=== PATIENT | female | born 1995 | race Caucasian/White ===

== ENCOUNTER 2019-11-03 12:15 | Emergency (ER) | payer OTHER ==
[~2019-11-03] VITALS: Ht 170.2 cm; Wt 110.1 kg
[2019-11-03] MEDS ORDERED: EFFE37.5 PO (12:21)
[2019-11-03 12:59] LABS: BASO # 0.1 10^3/uL (0.0-0.2); BASO % 0.4 % (0.0-1.0); EOS # 0.1 10^3/uL (0.0-0.5); EOS % 0.8 % (0.0-3.0); HEMATOCRIT 40.3 % (36.0-47.0); HEMOGLOBIN 12.4 g/dl (12.0-15.5); LYMPH # 2.5 10^3/uL (1.5-5.0); LYMPH % 21.6 % (24.0-44.0); MEAN CORPUSCULAR HEMOGLOBIN 24.8 pg (27.0-33.0); MEAN CORPUSCULAR HGB CONC 30.8 g/dl (32.0-36.5); MEAN CORPUSCULAR VOLUME 80.6 fl (80.0-96.0); MONO # 0.8 10^3/uL (0.0-0.8); MONO % 6.9 % (0.0-5.0); NEUTROPHILS % 70.1 % (36.0-66.0); PLATELET COUNT, AUTOMATED 311 10^3/uL (150-450); WHITE BLOOD COUNT 11.4 10^3/uL (4.0-10.0)
[2019-11-03 13:26] LABS: BLOOD UREA NITROGEN 12 MG/DL (7-18); CALCIUM LEVEL 8.8 MG/DL (8.5-10.1); CARBON DIOXIDE LEVEL 29 MEQ/L (21-32); CHLORIDE LEVEL 108 MEQ/L (98-107); CREATININE FOR GFR 0.74 MG/DL (0.55-1.30); GLOMERULAR FILTRATION RATE > 60.0 (>60); GLUCOSE, FASTING 73 MG/DL (70-100); POTASSIUM SERUM 4.2 MEQ/L (3.5-5.1); SODIUM LEVEL 140 MEQ/L (136-145)
[2019-11-03 13:28] LABS: HCG, SERUM QUALITATIVE NEGATIVE (NEGATIVE)
[2019-11-03] MEDS ORDERED: CIPR-249 PO (13:33)
[2019-11-03] MEDS ORDERED: PYRI1TAB5 PO (13:33)
[2019-11-03 13:40] VITALS: BP 108/63
--- NOTE | 2019-11-03 13:59 | REP ---
RENAL ULTRASOUND: Real-time sonographic evaluation of the kidneys performed. Kidneys are normal in size and echotexture, right kidney measuring 10.2 x 4.4 x 4.5 cm and left kidney 10.4 x 5.4 x 6.5 cm. There is no renal mass or hydronephrosis. Bladder is mildly distended. Ureteral jets are seen in the urinary bladder bilaterally with Doppler color evaluation. IMPRESSION: Negative renal ultrasound. Electronically Signed by Lorezno Newman MD 11/03/2019 02:02 P
== END 2019-11-03 13:43 | disposition home or self-care (01) ==
LOC: M ED 12:15
DX: N39.0 Urinary tract infection, site not specified (principal); F33.9 Major depressive disorder, recurrent, unspecified; Z79.899 Other long term (current) drug therapy; Z79.2 Long term (current) use of antibiotics

== ENCOUNTER 2020-06-09 14:01 | Emergency (ER) | payer OTHER ==
[~2020-06-09] VITALS: Ht 170.2 cm; Wt 114.9 kg
[~2020-06-09 14:01] MED LIST: CIPR-249 PO; EFFE37.5 PO; PYRI1TAB5 PO
[2020-06-09] MEDS ORDERED: ONDANSETRON 4MG/2ML VIAL IV ONE (15:15)
[2020-06-09] MEDS ORDERED: NS 1,000 ML IV ONE (15:15)
--- NOTE | 2020-06-09 16:07 | REP ---
INDICATION: VAGINAL BLEEDING. COMPARISON: None. TECHNIQUE: Transabdominal scanning. FINDINGS: Scanning through the urine filled bladder and gravid uterus demonstrates a single living intrauterine gestation in a free-floating lie. The embryonic pole measures 19 mm in crown-rump length. This corresponds with a gestational age estimate of 8 weeks 3 days. heart rate is recorded at 170 beats per minute. No extra uterine abnormality is observed. IMPRESSION: Viable single intrauterine gestation at 8 weeks 3 days by crown-rump length. CHELSIE by sonography 16 January 2021. No complication is identified. <Electronically signed by Efrain Bradford > 06/09/20 0749
[2020-06-09 17:33] LABS: BASO % 0.1 % (0.0-1.0); HEMATOCRIT 40.8 % (36.0-47.0); HEMOGLOBIN 12.6 g/dl (12.0-15.5); LYMPH # 2.3 10^3/uL (1.5-5.0); LYMPH % 21.4 % (24.0-44.0); MEAN CORPUSCULAR HGB CONC 30.9 g/dl (32.0-36.5); MEAN CORPUSCULAR VOLUME 80.8 fl (80.0-96.0); MONO # 0.6 10^3/uL (0.0-0.8); MONO % 5.4 % (0.0-5.0); NEUTROPHILS % 72.8 % (36.0-66.0); PLATELET COUNT, AUTOMATED 294 10^3/uL (150-450); RED BLOOD COUNT 5.05 10^6/uL (4.00-5.40)
[2020-06-09 18:14] LABS: ALBUMIN 3.7 GM/DL (3.2-5.2); ALT/SGPT 29 U/L (12-78); BILIRUBIN,DIRECT < 0.1 MG/DL (0.0-0.2); BILIRUBIN,TOTAL 0.4 MG/DL (0.2-1.0); HCG, SERUM QUANTITATIVE 77515 MIU/ML; LIPASE 90 U/L (73-393); TOTAL PROTEIN 8.2 GM/DL (6.4-8.2)
[2020-06-09 18:49] LABS: BILIRUBIN, URINE MANUAL NEGATIVE (NEGATIVE); GLUCOSE, URINE (UA) MANUAL NEGATIVE (NEGATIVE); KETONE, URINE MANUAL 2+ mg/dL (NEGATIVE); UROBILINOGEN, URINE MANUAL NORMAL (NORMAL)
[2020-06-09 19:02] LABS: BACTERIA, URINE SMALL AMOUNT; MUCUS, URINE MOD AMOUNT (NEGATIVE); RBC, URINE NONE SEEN /hpf (0-3); SQUAMOUS EPITHELIAL CELL URINE SMALL AMOUNT /hpf (SMALL AMT)
[2020-06-09 19:03] LABS: HYALINE CAST, URINE NONE SEEN /lpf (0-1)
[2020-06-09] MEDS ORDERED: MACR100C43 PO ×2 (19:16→19:49)
[2020-06-09] MEDS ORDERED: REGL10TA6 PO ×2 (19:19→19:49)
[2020-06-09 19:22] VITALS: BP 126/75
[2020-06-09] MEDS ORDERED: NITROFURANTOIN (MACROBID) 100 MG CAP PO ONE (19:30)
== END 2020-06-09 19:50 | disposition home or self-care (01) ==
LOC: M ED 14:01
DX: O21.8 Other vomiting complicating pregnancy (principal); Z3A.09 9 weeks gestation of pregnancy; O23.41 Unspecified infection of urinary tract in pregnancy, first trimester; O99.891 Other specified diseases and conditions complicating pregnancy; N93.0 Postcoital and contact bleeding
CPT/HCPCS: 76801; 80047; 80076; 81000; 81015; 83690; 84702; 85025; 86901; 87210; 93976; 96361; 96374; 99284; J2405

== ENCOUNTER → 2020-06-21 | Outpatient (REF) | payer OTHER ==
[~2020-06-21] MED LIST changes: +MACR100C43 PO; +REGL10TA6 PO
[2020-06-21 13:50] LABS: HEMATOCRIT 38.6 % (36.0-47.0); HEMOGLOBIN 11.8 g/dl (12.0-15.5); MEAN CORPUSCULAR HEMOGLOBIN 25.1 pg (27.0-33.0); MEAN CORPUSCULAR HGB CONC 30.6 g/dl (32.0-36.5); MEAN CORPUSCULAR VOLUME 82.1 fl (80.0-96.0); PLATELET COUNT, AUTOMATED 246 10^3/uL (150-450); WHITE BLOOD COUNT 7.6 10^3/uL (4.0-10.0)
[2020-06-21 14:21] LABS: GLUCOSE CHALLENGE TEST 1 HOUR 123 MG/DL (LESS THAN 140)
[2020-06-21 14:26] LABS: HEMOGLOBIN A1c 5.3 %
[2020-06-21 14:30] LABS: TOTAL 25(OH) VITAMIN D 14.8 NG/ML (30.0-100.0)
[2020-06-21 15:11] LABS: HIV 1&2 SCREEN CENTAUR NEGATIVE (NEGATIVE)
[2020-06-21 15:35] LABS: CHLAMYDIA DNA AMPLIFICATION NEGATIVE (NEGATIVE); GC DNA AMPLIFICATION NEGATIVE (NEGATIVE)
== END ==
LOC: M PLALAB 11:08
PROVIDERS: ATTEND Advanced Practice Midwife
DX: O99.341 Other mental disorders complicating pregnancy, first trimester (principal); Z3A.11 11 weeks gestation of pregnancy; F99 Mental disorder, not otherwise specified

== ENCOUNTER → 2020-07-19 | Outpatient (REF) | payer OTHER ==
[2020-07-19 13:19] LABS: FREE T4 0.85 NG/DL (0.76-1.46); THYROID STIMULATING HORMONE 2.46 uIU/ML (0.358-3.740)
== END ==
LOC: M PLALAB 10:02
PROVIDERS: ATTEND Advanced Practice Midwife
DX: O99.340 Other mental disorders complicating pregnancy, unspecified trimester (principal)
CPT/HCPCS: 36415; 84439; 84443; 87086; G0463

== ENCOUNTER → 2020-08-16 | Outpatient (CLI) | payer OTHER ==
--- NOTE | 2020-08-16 11:22 | REP ---
INDICATION: ANATOMY COMPARISON: None. TECHNIQUE: Transabdominal obstetrical ultrasound with color Doppler evaluation. FINDINGS: Examination demonstrates a single live intrauterine in transverse (head to maternal right) presentation. motion is identified by technologist. Placenta is noted posterior and grade 1 without evidence for placenta previa or abruption. Amniotic fluid volume is normal. Cervix measures 3.5 cm in length and appears closed.. Gestational age by LMP nineteen weeks 1 day with CHELSIE 01/09/2021. Gestational age by current measurements 19 weeks 1 day with CHELSIE 01/09/2021. FHR equals 149 beats per minute. BPD: 4.4 cm 19 weeks 2 days HC: 15.7 cm 18 weeks 4 days AC: 14.2 cm 19 weeks 4 days FL: 2.7 cm 18 weeks 2 days HL: 3.0 cm 19 weeks 6 days HC/AC: 1.11 Estimated weight 266 grams (37thpercentile). Anatomical assessment demonstrates normal structures including cranium, choroid plexus, cavum, cerebellum/posterior fossa, facial features, lungs, diaphragm, stomach, cord insertion/three-vessel cord, kidneys/bladder, spine, and extremities. IMPRESSION: Single live intrauterine in transverse lie demonstrating appropriate interval growth. Limited evaluation of the heart/ventricular outflow tracts may warrant re-evaluation and follow-up. Remainder of the anatomical assessment is complete and normal <Electronically signed by Lan Crowell > 08/16/20 111
== END ==
LOC: M WHC 10:00
PROVIDERS: ATTEND Advanced Practice Midwife
DX: Z34.82 Encounter for supervision of other normal pregnancy, second trimester (principal); Z3A.15 15 weeks gestation of pregnancy
CPT/HCPCS: 76811; G0463

== ENCOUNTER → 2020-09-19 | Outpatient (CLI) | payer OTHER ==
--- NOTE | 2020-09-20 03:07 | REP ---
INDICATION: ANATOMY COMPARISON: 08/16/2020 TECHNIQUE: Transabdominal obstetrical ultrasound with color Doppler evaluation. FINDINGS: Examination demonstrates a single live intrauterine in cephalic presentation. motion is identified by technologist. Placenta is noted posterior and grade 1 without evidence for placenta previa or abruption. Amniotic fluid volume is normal. Cervix measures 3.0 cm in length and appears closed.. Gestational age by LMP 24 weeks 0 days with CHELSIE 01/09/2021. Gestational age by current measurements 24 weeks 3 days with CHELSIE 01/06/2021. FHR equals 152 beats per minute. Estimated weight 714 grams (70thpercentile). Anatomical assessment demonstrates normal structures including four-chamber heart/ventricular outflow tracts. IMPRESSION: Single live intrauterine in cephalic presentation demonstrating appropriate estimated weight and growth. In conjunction with prior examination anatomical assessment is complete and normal. <Electronically signed by Lan Crowell > 09/20/20 4500
== END ==
LOC: M WHC 14:58
PROVIDERS: ATTEND Advanced Practice Midwife
DX: R39.9 Unspecified symptoms and signs involving the genitourinary system (principal); Z3A.39 39 weeks gestation of pregnancy

== ENCOUNTER → 2020-10-02 | Outpatient (REF) | payer OTHER | LOC: M WUC 12:32 | PROVIDERS: ATTEND Physician Assistant | DX: R30.0 Dysuria (principal) ==

== ENCOUNTER → 2020-10-11 | Outpatient (REF) | payer OTHER ==
[2020-10-11 18:18] LABS: HEMATOCRIT 33.1 % (36.0-47.0); HEMOGLOBIN 10.5 g/dl (12.0-15.5); MEAN CORPUSCULAR HEMOGLOBIN 26.9 pg (27.0-33.0); MEAN CORPUSCULAR HGB CONC 31.7 g/dl (32.0-36.5); MEAN CORPUSCULAR VOLUME 84.7 fl (80.0-96.0); PLATELET COUNT, AUTOMATED 288 10^3/uL (150-450); RED BLOOD COUNT 3.91 10^6/uL (4.00-5.40); WHITE BLOOD COUNT 10.4 10^3/uL (4.0-10.0)
[2020-10-11 18:57] LABS: FREE T4 0.75 NG/DL (0.76-1.46); THYROID STIMULATING HORMONE 0.888 uIU/ML (0.358-3.740)
== END ==
LOC: M PLALAB 14:44
PROVIDERS: ATTEND Advanced Practice Midwife
DX: Z36.89 Encounter for other specified antenatal screening (principal); Z3A.23 23 weeks gestation of pregnancy
CPT/HCPCS: 36415; 82950; 84439; 84443; 85027; 86850; 86900; 86901; 87086; G0463

== ENCOUNTER → 2020-10-24 | Outpatient (CLI) | payer OTHER ==
--- NOTE | 2020-10-24 17:36 | REP ---
INDICATION: SIZE-DATE DISCREPANCY,GROWTH. COMPARISON: 09/19/2020. TECHNIQUE: Real-time sonographic evaluation of the gravid uterus performed. FINDINGS: Estimated gestational age is29 weeks 0 days, EDC 01/09/2021. Today's measurements indicate appropriate growth. Presentation: Cephalic Placenta posterior, grade 2, without evidence of placenta previa. heart rate is recorded at 146 beats per minute. Amniotic fluid is subjectively normal. SERGE 20.3, normal 9.2-23.1 Closed cervical length is measured at 3.1 cm. Biometry chart: BPD: 76 mm, 30 weeks 3 days, 70th percentile. HC: 267 mm, 29 weeks 1 days, 52nd percentile AC: 269 mm, 31 weeks 0 days, 80th percentile Femur length: 55 mm, 28 weeks 6 days, 47th percentile HC to AC ratio: 0.99, normal range 0.98-1.17. Estimated weight: 08/08/2008g, 77th percentile. Three-vessel cord is noted. Kidneys, bladder and spine are visualized and are grossly unremarkable. IMPRESSION: Viable single intrauterine gestation as above. <Electronically signed by Lorenzo Newman > 10/24/20 [id number]
== END ==
LOC: M WHC 14:17
PROVIDERS: ATTEND Obstetrics & Gynecology
DX: O26.842 Uterine size-date discrepancy, second trimester (principal); Z3A.29 29 weeks gestation of pregnancy

== ENCOUNTER → 2020-10-27 | Outpatient (CLI) | payer OTHER | LOC: M LAB 08:32 | PROVIDERS: ATTEND Advanced Practice Midwife | DX: Z34.93 Encounter for supervision of normal pregnancy, unspecified, third trimester (principal); Z3A.00 Weeks of gestation of pregnancy not specified ==

== ENCOUNTER → 2020-11-30 | Outpatient (CLI) | payer OTHER ==
[~2020-11-30] MED LIST changes: +ACET-683 PO; +ACET325C5 PO; +CEPH500T PO; +IBUP80TA PO
--- NOTE | 2020-11-30 17:58 | REP ---
INDICATION: 34 WEEK NON REACTIVE NST. COMPARISON: 11/30/2020. 12:23 p.m.. TECHNIQUE: Real-time sonographic evaluation of the gravid uterus performed. FINDINGS: Estimated gestational age is35 weeks 3 days, EDC 01/01/2021. Presentation: Breech Placenta posterior, grade 1, without evidence of placenta previa. heart rate is recorded at 145 beats per minute. Amniotic fluid is subjectively upper limits of normal. SERGE 25.3, normal range 7.8-24.9. Biophysical profile score 8/8. SD ratio umbilical artery 2.45, normal 1.66-3.55. RI 0.59, normal 0.46-0.72. Closed cervical length is measured at 3.2 cm. IMPRESSION: Viable single intrauterine gestation as above. <Electronically signed by Lorenzo Newman > 11/30/20 [id number]
== END ==
LOC: M RAD 17:05
PROVIDERS: ATTEND Obstetrics & Gynecology
DX: O24.419 Gestational diabetes mellitus in pregnancy, unspecified control (principal); Z3A.35 35 weeks gestation of pregnancy
CPT/HCPCS: 76816; 76819; 76820; G0463

== ENCOUNTER → 2020-12-11 | Outpatient (REF) | payer OTHER ==
[~2020-12-11] MED LIST changes: -ACET-683 PO; -ACET325C5 PO; -CEPH500T PO; -IBUP80TA PO
== END ==
LOC: M SFHCWAGY 13:06
PROVIDERS: ATTEND Specialist
DX: Z36.89 Encounter for other specified antenatal screening (principal)

== ENCOUNTER 2020-12-13 22:51 | Outpatient (CLI) | payer OTHER ==
[~2020-12-13] VITALS: Ht 170.2 cm; Wt 118.8 kg
[2020-12-13 23:09] VITALS: BP 133/64
[2020-12-14] MEDS ORDERED: diphenhydrAMINE 50MG CAP PO ONE (00:25)
[2020-12-14] MEDS ORDERED: diphenhydrAMINE 25MG CAP PO ONE (00:35)
[2020-12-16] MEDS ORDERED: CEPH500T PO (23:53)
== END 2020-12-14 00:45 | disposition home or self-care (01) ==
LOC: M LDO 22:51
PROVIDERS: ATTEND Advanced Practice Midwife
DX: O47.03 False labor before 37 completed weeks of gestation, third trimester (principal); Z3A.36 36 weeks gestation of pregnancy; O24.419 Gestational diabetes mellitus in pregnancy, unspecified control; O99.343 Other mental disorders complicating pregnancy, third trimester; F41.9 Anxiety disorder, unspecified; F32.9 Major depressive disorder, single episode, unspecified
CPT/HCPCS: 59025; 87081; G0378; G0463

== ENCOUNTER → 2020-12-16 | Outpatient (CLI) | payer OTHER ==
[~2020-12-16] VITALS: Ht 170.2 cm; Wt 119.1 kg
[~2020-12-16] MED LIST changes: +CEPH500T PO; +CEPHALEXIN 500 MG CAP PO ONE
[2020-12-16 21:49] VITALS: BP 103/56
[2020-12-16 23:23] VITALS: BP 109/56
--- NOTE | 2020-12-17 00:18 | IPNPDOC ---
Text Note Date of Service The patient was seen on 12/17/20. NOTE Triage Note Lily is a 25yo with SIUP at 36w5d by LMP presenting tonight for two reasons. She feels she has a UTI, states she did home tests that were positive. She feels like she is "peeing razor blades" and has to use the toilet every 10 minutes. She states she has overall not felt many movements all day, does not think she can get 10 movements over 2hr. No regular/painful ctx. No LOF. No vaginal bleeding. Vitals wnl, afebrile Gen: WDWN, resting comfortably in bed Abdomen: soft, gravid, NTTP TAUS: SIUP with cephalic presentation, posterior placenta, +FCA, +FM, MVP 8cm NST: reactive, +accels, -decels, mod [place]: rare ctx Urinalysis: spec grav 1.024, 1+ protein, negative nitrite, 2+ leuk esterase, negative blood, 33 WBC, negative bacteria, 4 squam Assessment: Lily is a 25yo with SIUP at 36w5d by LMP with reassuring assessment and likely UTI by UA result showing 2+ LE, 33 WBC. She had e- coli UTI in Jun 2020 and had sx in October with negative urine culture. Vitals wnl, benign exam. Plan: -discharge to home -Rx keflex 500mg QID x7d, first dose here and then pt to [facility] Rx first thing in the morning -pt to keep next routine OB appt on Friday -provided reassurance -discussed return precautions MD PHILIP Randall Fishbone, I+O Malvin PALACIOS I+O Vital Signs Date Time Temp Pulse Resp B/P (MAP) Pulse Ox O2 Delivery O2 Flow Rate FiO2 12/16/20 21:49 98.0 91 16 103/56 (72) Charises Jimenez MD December 17, 2020 00:18
== END ==
LOC: M LDO 21:36
PROVIDERS: ATTEND Obstetrics & Gynecology
DX: O23.43 Unspecified infection of urinary tract in pregnancy, third trimester (principal); Z3A.36 36 weeks gestation of pregnancy; O36.8130 Decreased fetal movements, third trimester, not applicable or unspecified
CPT/HCPCS: 59025; 76815; 81001; 87086; G0378; G0463

== ENCOUNTER → 2020-12-21 | Outpatient (CLI) | payer OTHER ==
[~2020-12-21] MED LIST changes: +ACET-683 PO; +ACET325C5 PO; -CEPHALEXIN 500 MG CAP PO ONE; +IBUP80TA PO
--- NOTE | 2020-12-22 06:59 | REP ---
INDICATION: GROWTH/CHELSIE 01/09/21 COMPARISON: 11/30/2020 TECHNIQUE: Transabdominal obstetrical ultrasound with color Doppler evaluation. FINDINGS: Examination demonstrates a single live intrauterine in cephalic presentation. motion is identified by technologist. Placenta is noted posterior and grade 2 without evidence for placenta previa or abruption. Amniotic fluid volume is normal. Cervix appears closed.. Gestational age by 1st U/S 37 weeks 2 days with CHELSIE 01/09/2021. Gestational age by known CHELSIE at 38 weeks 3 days with CHELSIE 01/01/2021. Gestational age by current measurements 39 weeks 2 days with CHELSIE 12/26/2020. FHR equals 165 beats per minute. SERGE: 22.7 cm (7.3-23.3) Biophysical profile score: 8/8 Umbilical artery SD ratio: 2.30 (1.53-3.33) Estimated weight 3895 grams (greater than 97thpercentile based on age by known CHELSIE). IMPRESSION: Single live intrauterine in cephalic presentation demonstrating greater than expected interval growth. Correlation is required. <Electronically signed by Lan Crowell > 12/22/20 0665
== END ==
LOC: M WHC 14:23
PROVIDERS: ATTEND Advanced Practice Midwife
DX: O24.419 Gestational diabetes mellitus in pregnancy, unspecified control (principal); Z3A.38 38 weeks gestation of pregnancy

== ENCOUNTER 2020-12-22 05:48 | Inpatient (IN) | payer OTHER ==
[2020-12-22] VITALS (37 sets, daily range): BP systolic 85–151; BP diastolic 42–83
[~2020-12-22] VITALS: Ht 170.2 cm; Wt 118.8 kg
[~2020-12-22 05:48] MED LIST changes: -ACET-683 PO; -ACET325C5 PO; -IBUP80TA PO
[2020-12-22] MEDS ORDERED: LACTATED RINGER'S 1000 ML IV STA (07:27)
[2020-12-22] MEDS ORDERED: OXYTOCIN DRIP 30 UNITS in IV 1 EA IV PRN (07:30)
[2020-12-22] MEDS ORDERED: LR 1,000 ML IV SCH (07:30)
[2020-12-22] MEDS ORDERED: LIDOCAINE 1% MDV 20ML VIAL INFIL PRN (07:30)
[2020-12-22] MEDS ORDERED: METHYLERGONOVINE MALEATE 0.2 MG/ML VIAL (J2210) IM PRN (07:30)
[2020-12-22 08:12] LABS: HEMATOCRIT 32.3 % (36.0-47.0); MEAN CORPUSCULAR HEMOGLOBIN 23.8 pg (27.0-33.0); MEAN CORPUSCULAR VOLUME 76.7 fl (80.0-96.0); PLATELET COUNT, AUTOMATED 279 10^3/uL (150-450); RED BLOOD COUNT 4.21 10^6/uL (4.00-5.40); WHITE BLOOD COUNT 11.5 10^3/uL (4.0-10.0)
[2020-12-22] MEDS ORDERED: FENTANYL 2MCG/ML ROPIVACAINE 0.2% IN 0.9% NACL 100ML IVBAG As Ordered ONE (08:48)
[2020-12-22] MEDS ORDERED: REFRIGERATOR IV KEYS XX PRN (09:20)
[2020-12-22] MEDS ORDERED: NALOXONE INJ 0.4MG/1ML VIAL (J2310 PER 1MG) IV PRN (09:20)
[2020-12-22] MEDS ORDERED: ONDANSETRON 4MG/2ML VIAL IV PRN (09:20)
[2020-12-22] MEDS ORDERED: FENTANYL/ROPIVACAINE/NACL BAG 100 ML EPIDURAL SCH (09:20)
[2020-12-22] MEDS ORDERED: diphenhydrAMINE 50MG/ML VIAL (J1200) IV PRN (09:20)
[2020-12-22] MEDS ORDERED: EPIDURAL/PCA KEYS XX PRN (09:20)
[2020-12-22] MEDS ORDERED: EPIDURAL COMMENT XX SCH (09:20)
[2020-12-22] MEDS ORDERED: LACTATED RINGER'S 1000 ML IV PRN (09:20)
--- NOTE | 2020-12-22 09:42 | HPEPDOC ---
Obstetrical History & Physical General Date of Admission December 22, 2020 at 07:18 History of Present Illness Lily is a 25yo with SIUP at 37w3d by lmp c/w 10wk u/s presenting for contractions and some vaginal spotting. She notes that she has been having increasingly uncomfortable contractions and recently when she wiped, there was some blood tinged mucous. Good movement. No LOF. No f/c/n/v. Chief Complaint: Contractions, term Information Provided By: Patient Care Care: Good Care Dating Final EDC: December 09, 2020 Final EDC by: LMP, 1st trimester (US) Antepartum Course Diagnos(e)s A2GDM on metformin (>97%ile on 12/21), Depression/anxiety on zoloft, vitamin D deficiency taking vitamin D, Obesity Past Medical History Past Obstetrical History : Past Obstetrical History: Multigravida (12/25/2016 3080g at 37wk M in [facility], early sab age 17) IRRIGATOR HEAD History: Spontaneous , History of STD (chlamydia) Past Medical History Medical History Obesity, vitamin D deficiency, depression/anxiety Surgical History: Denies/None Family History Significant Family History: No pertinent family hx Social History Marital Status: Psychosocial History: Anxiety, Depression * Smoker: non-smoker Alcohol: Denies Drugs: denies Allergies Coded Allergies: No Known Allergies (Unverified , 12/22/20) Medications Scheduled Cephalexin (Cephalexin) 500 Mg Tablet, 500 MG PO QID Scheduled PRN Metoclopramide HCl (Reglan) 10 Mg Tablet, 10 MG PO Q6H PRN for NAUSEA Physical Examination Physical Examination GENERAL: Alert and oriented times three. ABDOMEN: Gravid and non-tender to touch. FETUS: Is vertex (VTX) by sterile vaginal examination (SVE) EXTREMITIES: No edema of BLE Vital Signs/I&O Vital Signs Date Time Temp Pulse Resp B/P (MAP) Pulse Ox O2 Delivery O2 Flow Rate FiO2 12/22/20 06:07 97.3 85 18 131/82 (98) Laboratory Data 24H LABS Laboratory Tests 2 12/22/20 07:25: Serology Scanned Report Hepatitis B Testing 12/22/20 07:46: Nucleated Red Blood Cells % (auto) 0.0 CBC/BMP Laboratory Tests 12/22/20 07:46 Pertinent Laboratoy Data Blood Type: A+ RBC Antibody Screen: Negative HIV: Negative Hepatitis B: Negative Hepatitis C: Negative Rapid Plasma Reagin: Nonreactive Rubella: Immune Chlamydia/Gonorrhea: Negative Group B Streptococcus: Negative Glucose Tolerance Test: 136 (87/177/138/3hr?) Anatomy Ultrasound Ultrasound Date: Aug 16, 2020 Placenta Location: Posterior Normal Anatomy: Yes (but limited eval heart/VOTs) Placenta Previa: No Other Ultrasounds 09/19 70%ile, anatomical assessment complete and wnl 12/21 >97%ile, 3895g, BPP 8/8 Steroid Therapy Steroid Therapy: No Vaginal Examination Dilation: 5 cm Effacement: 90% Station: -2 Cervical Consistency: Soft Cervical Position: Middle Presentation: Cephalic presentation Assessment Heart Rate (FHR): 130 Variability: Moderate Accelerations: Positive Decelerations: None Tocometer Contractions: Yes Frequency: regular, every 2-5 min. Duration: greater than 60 seconds Strength: palpated as moderate Assessment/Plan Assessment Lily is a 25yo with SIUP at 37w3d by lmp c/w 10wk u/s admitted to L&D for active labor. SCE /-2 with regular painful ctx. Cat I FHRT. Vitals wnl, exam benign. Cephalic by SCE. GBS neg. PMhx/PNC significant for: A2GDM on metformin (>97%ile EFW on 12/21), Depression/anxiety on zoloft, vitamin D deficiency taking vitamin D, Obesity Plan Admit and orient. Odd [employer] and consent. Diet: clear liquids Group B Streptococcus (GBS) negative Labs and intravenous (IV) per unit protocol. Lactated Ringers (LR): Bolus 800 mL, then at 125 mL/hr. Anticipate normal spontaneous delivery () Candidate for epidural as desired MD Barbara Randall Katrina D MD December 22, 2020 08:43
[2020-12-22] MEDS: ePHEDrine SULFATE 25 MG/5 ML(5MG/ML) SYRINGE IV PRN ×3 (10:20→10:29)
--- NOTE | 2020-12-22 11:24 | IPNPDOC ---
Text Note Date of Service The patient was seen on 12/22/20. NOTE Progress Comfortable with epidural FH 150, minimal/moderate variability, episodes Cat II due to mild tachycardia UC unable to assess at this time due to maternal position SVE /-1, BBOW Pt desires to wait for partner to arrive prior to AROM. Says about 30 minutes. "He didn't want to come because last time took so long" Anticipate NSVB VS,Fishbone, I+O VS, Fishbone, I+O Laboratory Tests 12/22/20 07:46 Vital Signs Date Time Temp Pulse Resp B/P (MAP) Pulse Ox O2 Delivery O2 Flow Rate FiO2 12/22/20 10:24 68 106/53 (70) 12/22/20 09:56 18 12/22/20 07:29 97.3 Amparo Duque CNM December 22, 2020 11:24
--- NOTE | 2020-12-22 12:30 | IPNPDOC ---
Text Note Date of Service The patient was seen on 12/22/20. NOTE Progress Intermittent episodes of spontaneous tachycardia followed by abrupt return to 140's SVE 8/100/0, AROM moderate amount thin meconium stained fluid FSE placed. Will notify Dr Edgar PALACIOS,Malvin, I+O Malvin PALACIOS, I+O Laboratory Tests 12/22/20 07:46 Vital Signs Date Time Temp Pulse Resp B/P (MAP) Pulse Ox O2 Delivery O2 Flow Rate FiO2 12/22/20 11:09 72 107/53 (71) 12/22/20 09:56 18 12/22/20 07:29 97.3 Amparo Duque CNM December 22, 2020 12:30
[2020-12-22] MEDS ORDERED: ACET325C5 PO (13:19)
[2020-12-22 14:06] LABS: CORD GAS ABE V -9.4; CORD GAS HCO3 V 17.4 MEQ/L; CORD GAS O2 SAT V 71.2 %; CORD GAS PH V 7.246 UNITS; CORD GAS PO2 V 33.1 mmHg; CORD GAS SBC V 16.6 MEQ/L; CORD GAS TCO2 V 18.7 MEQ/L
[2020-12-22 14:07] LABS: CORD GAS ABE A -9.8; CORD GAS HCO3 A 19.9 MEQ/L; CORD GAS O2 SAT A 61.7 %; CORD GAS PCO2 A 58.8 mmHg; CORD GAS PH A 7.148 UNITS; CORD GAS PO2 A 30.1 mmHg; CORD GAS TCO2 A 21.7 MEQ/L
[2020-12-22] MEDS ORDERED: OXYTOCIN DRIP 30 UNITS in IV 1 EA IV SCH (14:30)
[2020-12-22] MEDS ORDERED: IBUPROFEN 600MG TAB PO PRN (14:30)
[2020-12-22] MEDS ORDERED: MOM 30ML SUSPENSION UDC PO PRN (14:30)
[2020-12-22] MEDS ORDERED: METHYLERGONOVINE MALEATE 0.2 MG TAB PO PRN (14:30)
[2020-12-22] MEDS ORDERED: DIBUCAINE 1% OINTMENT 30GM TOP PRN (14:30)
[2020-12-22] MEDS ORDERED: RHOGAM 300 MCG (1500 IU) INJ (J2790) IM SCH (14:30)
[2020-12-22] MEDS ORDERED: ACETAMINOPHEN TAB 650MG DOSE (2X325MG) PO PRN (14:30)
[2020-12-22] MEDS ORDERED: DOCUSATE SODIUM 100MG CAPSULE PO PRN (14:30)
[2020-12-22] MEDS ORDERED: MEASLES,MUMPS,RUBELLA VACCINE INJ (MMR-II) (90707) SC SCH (14:30)
--- NOTE | 2020-12-22 14:40 | DNPDOC ---
[facility] Delivery Note Delivery Note DATE OF DELIVERY: 12/22/2020 PREDELIVERY DIAGNOSIS: 37+3/7 weeks' gestation and labor. POST DELIVERY DIAGNOSIS: Delivered. PROCEDURE: Spontaneous vaginal delivery. PROVIDER: Amparo Duque CNM ANESTHESIA: Epidural. ESTIMATED BLOOD LOSS: 250 mL. FINDINGS: 8 pound 0 ounce, 3620gm male , Score 7/8, loose nuchal cord times 1, reduced prior to delivery of body. DELIVERY SUMMARY: Patient is a 25 -year-old 3 now para 2-0-1-2 who was admitted to labor and delivery for active labor. She utilized an epidural for labor coping. AROM thin meconium stained fluid 1222. Episodes of tachycardia were noted with abrupt resolution to baseline. Fully dilated 1322. Upon delivery of the head, anders and naso pharynx were bulb suctioned for scant amount fluid. Loose nuchal cord reduced. Viable male delivered ACE followed by large gush of thick meconium fluid. Initial transition on maternal abdomen then cord doubly clamped and cut for suctioning on warmer. Cord gases obtained, arterial 7.48, BE -9.8 and venous 7.246, BE -9.4. Placenta kelly, intact with 3v cord @ 1358. Fundus firmed with massage and bolus premixed pitocin infusion. Brisk bleeding resumed. Misoprostol 1000mcg DE placed with excellent control of bleeding. EBL 250ml. First degree perineal laceration repaired with 3-0 vicryl rapide in the usual fashion. Sponge, sharp and instrument count correct at close of procedure. Amparo Duque CNM December 22, 2020 14:40
[2020-12-22] MEDS: IBUPROFEN 800 MG TAB PO PRN ×2 (17:19→23:53)
[2020-12-22] MEDS: ACETAMINOPHEN 500 MG TAB PO PRN (21:49)
[2020-12-23] MEDS ORDERED: METHYLERGONOVINE MALEATE 0.2 MG TAB PO SCH (01:55)
[2020-12-23] MEDS: METHYLERGONOVINE MALEATE 0.2 MG TAB PO SCH ×4 (04:30→23:25)
[2020-12-23 06:00] VITALS: BP 127/65
--- NOTE | 2020-12-23 07:15 | IPNPDOC ---
Text Note Date of Service The patient was seen on 12/23/20. NOTE PP #1 Feels well. Adequate pain management. Voiding. VSS, afebrile, normotensive Breasts soft Fundus firm, NT Lochia rubra light without odor Perineum well approximated PP #1 Routine care. Anticipate D/C in am VS,Fishbone, I+O VS, Fishbone, I+O Laboratory Tests 12/22/20 07:46 Vital Signs Date Time Temp Pulse Resp B/P (MAP) Pulse Ox O2 Delivery O2 Flow Rate FiO2 12/23/20 06:00 97.4 67 14 127/65 (85) 12/22/20 18:00 99 Room Air I&O- Last 24 Hours up to 6 AM 12/23/20 06:00 Intake Total 2500 ml Output Total 900 ml Balance 1600 ml Amparo Duque CNM December 23, 2020 07:15
[2020-12-23] MEDS: PRENATAL VITAMINS CHEWABLE TABLET PO SCH (07:32)
[2020-12-23] MEDS: IBUPROFEN 800 MG TAB PO PRN ×2 (07:33→16:39)
[2020-12-23] MEDS: SERTRALINE 100 MG TAB PO SCH (08:37)
[2020-12-23] MEDS: ACETAMINOPHEN 500 MG TAB PO PRN (14:31)
[2020-12-23 17:49] VITALS: BP 130/63
[2020-12-24] MEDS: IBUPROFEN 800 MG TAB PO PRN (05:50)
[2020-12-24 06:00] VITALS: BP 124/69
[2020-12-24] MEDS: PRENATAL VITAMINS CHEWABLE TABLET PO SCH (08:20)
[2020-12-24] MEDS: SERTRALINE 100 MG TAB PO SCH (08:20)
[2020-12-24] MEDS ORDERED: BOOSTRIX/ADACEL VACCINE (DIPHTH/PERTUSS/ACELL/TETANUS) 0.5ML SYR IM ONE (09:00)
[2020-12-24] MEDS ORDERED: IBUP80TA PO (10:29)
[2020-12-24] MEDS ORDERED: ACET-683 PO (10:29)
== END 2020-12-24 12:00 | disposition home or self-care (01) | DRG 807 ==
LOC: M LDO 05:48 → M LDI 07:18 → M OBS 16:41
PROVIDERS: ADMIT Obstetrics & Gynecology; ATTEND Obstetrics & Gynecology
PROC: 10E0XZZ Delivery of Products of Conception, External Approach (ICD-10-PCS; principal; 2020-12-22)
PROC: 10907ZC Drainage of Amniotic Fluid, Therapeutic from Products of Conception, Via Natural or Artificial Opening (ICD-10-PCS; 2020-12-22)
PROC: 0HQ9XZZ Repair Perineum Skin, External Approach (ICD-10-PCS; 2020-12-22)
DX: O24.425 Gestational diabetes mellitus in childbirth, controlled by oral hypoglycemic drugs (principal); Z37.0 Single live birth; Z3A.37 37 weeks gestation of pregnancy; O99.214 Obesity complicating childbirth; E66.9 Obesity, unspecified; O76 Abnormality in fetal heart rate and rhythm complicating labor and delivery; O77.0 Labor and delivery complicated by meconium in amniotic fluid; O69.81X0 Labor and delivery complicated by cord around neck, without compression, not applicable or unspecified; O70.0 First degree perineal laceration during delivery